=== PATIENT | male | born 1940 | race Caucasian/White ===

== ENCOUNTER 2021-09-25 09:11 | Emergency (ER) | payer MEDICARE, BC ==
[~2021-09-25] VITALS: Ht 177.8 cm; Wt 97.3 kg
[2021-09-25 13:05] VITALS: BP 144/77
== END 2021-09-25 13:38 | disposition home or self-care (01) ==
LOC: ER 09:12
DX: S86.911A Strain of unspecified muscle(s) and tendon(s) at lower leg level, right leg, initial encounter (principal); M79.604 Pain in right leg; X58.XXXA Exposure to other specified factors, initial encounter; Y93.89 Activity, other specified; Y92.89 Other specified places as the place of occurrence of the external cause; Y99.8 Other external cause status
CPT/HCPCS: 99281

== ENCOUNTER 2023-10-12 08:27 | Emergency (ER) | payer MEDICARE, BC ==
[~2023-10-12] VITALS: Ht 177.8 cm; Wt 98.0 kg
[~2023-10-12 08:27] MED LIST: APIX5TAB3 PO; ASCO-10 PO; CARCD120C PO; CYAN100082 PO; FLO0.4C PO
[2023-10-12 08:38] VITALS: BP 124/64; PULSE 58; RESP 16; TEMP 97.8; O2SAT 98
[2023-10-12] MEDS: predniSONE 20 mg tablet PO ONE (11:16)
[2023-10-12] MEDS: amox tr/potassium clavulanate 875/125mg TAB PO ONE (11:16)
[2023-10-12] MEDS ORDERED: DOXY-457 PO (11:22)
[2023-10-12] MEDS: diphenhydrAMINE 25mg capsule PO ONE (11:29)
== END 2023-10-12 11:35 | disposition home or self-care (01) ==
LOC: ER 08:27
DX: R22.1 Localized swelling, mass and lump, neck (principal); M54.2 Cervicalgia
CPT/HCPCS: 99284; J7512; Q0163

== ENCOUNTER 2023-12-02 09:39 | Day surgery (SDC) | payer MEDICARE, BC ==
[2023-11-28 09:26] LABS: ALBUMIN 3.5 G/DL (3.4-5.0); ANION GAP 5 (8-16); BLOOD UREA NITROGEN 13 MG/DL (7-18); BUN/CREATININE RATIO 14.1 (10.0-20.0); CALCIUM 8.4 MG/DL (8.5-10.1); CHLORIDE 103 MMOL/L (99-107); CREATININE 0.92 MG/DL (0.60-1.10); GLUCOSE 99 MG/DL (70-104); POTASSIUM 3.7 MMOL/L (3.5-5.1); SODIUM 137 MMOL/L (135-145); TOTAL CARBON DIOXIDE 28.9 MMOL/L (24-32); eGFR 78 ML/MIN
[2023-11-28 09:28] LABS: BASOPHILS % (AUTO) 0.3 % (0-1); EOSINOPHILS # (AUTO) 0.3 X10'3 (0-0.9); EOSINOPHILS % (AUTO) 3.8 % (0-6); HEMATOCRIT 42.3 % (42.0-52.0); HEMOGLOBIN 14.1 g/dl (14.0-17.9); LYMPHOCYTES % (AUTO) 29.8 % (21-51); MEAN CORPUSCULAR HEMOGLOBIN 28.7 PG (27.0-31.0); MEAN CORPUSCULAR HGB CONC 33.4 g/dL (33.0-36.5); MEAN CORPUSCULAR VOLUME 85.9 FL (78-98); MEAN PLATELET VOLUME 7.6 FL (7.4-10.4); MONOCYTES # (AUTO) 0.5 X10'3 (0-0.9); MONOCYTES % (AUTO) 7.3 % (2-12); NEUTROPHILS # (AUTO) 3.9 X10'3 (1.8-7.7); NEUTROPHILS % (AUTO) 58.8 % (42-75); PLATELET COUNT 191 X10'3 (140-440); RED BLOOD COUNT 4.92 X10'6 (4.70-6.10); RED CELL DISTRIBUTION WIDTH 14.9 % (11.5-14.5); WHITE BLOOD COUNT 6.6 X10'3 (4.5-11.0)
[2023-11-28 09:29] LABS: APTT 32 SECONDS (22-32); INR 1.1 INR; PROTHROMBIN TIME 11.7 SECONDS (9.0-12.0)
[2023-12-02] VITALS (10 sets, daily range): BP systolic 117–159; BP diastolic 73–99; PULSE 70–89; RESP 14–18; TEMP 98.1; O2SAT 93–98
[~2023-12-02] VITALS: Ht 177.8 cm; Wt 99.9 kg
[2023-12-02] MEDS ORDERED: AMLO2.5T2 PO (10:00)
[2023-12-02] MEDS ORDERED: SOTA80TA PO (10:00)
[2023-12-02] MEDS ORDERED: APIX5TAB3 PO (10:04)
[2023-12-02] MEDS: MIDAZolam 1mg/ml 10ml vial IV ONE (14:11)
[2023-12-02] MEDS: normal saline 1000ml 1,000 ML IV SCH (14:11)
[2023-12-02] MEDS: fentaNYL/PF 50MCG/1 ML 2ML syringe IV ONE (14:11)
== END 2023-12-02 15:25 | disposition home or self-care (01) ==
LOC: SSTAY O 09:39
PROVIDERS: ATTEND Student in an Organized Health Care Education/Training Program
DX: I48.91 Unspecified atrial fibrillation (principal); I49.3 Ventricular premature depolarization; I10 Essential (primary) hypertension; Z79.01 Long term (current) use of anticoagulants; Z79.899 Other long term (current) drug therapy; Z88.0 Allergy status to penicillin
CPT/HCPCS: 36415; 80048; 85025; 85610; 85730; 92960; 93005; J2250; J3010; J7030